=== PATIENT | female | born 1945 | race Caucasian/White ===

== ENCOUNTER 2017-01-18 11:22 | Day surgery (SDC) | payer MEDICARE, OTHER ==
[2017-01-18 11:49] VITALS: TEMP 98.4
[2017-01-18] MEDS ORDERED: TRIAMCINOLONE ACETONIDE 40 MG/ML SUS ONE (12:09)
[2017-01-18] MEDS ORDERED: LIDOCAINE HCL 1% MPF SOL ONE (12:22)
[2017-01-18 12:36] VITALS: PULSE 79; RESP 18; O2SAT 96
[2017-01-18 12:44] VITALS: BP 134/80
== END 2017-01-18 13:01 | disposition home or self-care (01) | DRG 552 ==
LOC: SURG 11:22
PROVIDERS: ATTEND Nurse Anesthetist, Certified Registered
DX: M48.06 Spinal stenosis, lumbar region (principal)
CPT/HCPCS: J2001; J3300

== ENCOUNTER 2017-09-27 08:34 | Day surgery (SDC) | payer MEDICARE, OTHER ==
[~2017-09-27 08:34] MED LIST: LIDOCAINE HCL 1% MPF SOL ONE; PROPOFOL 500 MG/50 ML EMU IV ONE
[2017-09-27] MEDS ORDERED: PROPOFOL 10 MG/ML EMU IV ONE ×2 (10:22)
[2017-09-27] MEDS ORDERED: ONDANSETRON HCL 4 MG/2 ML SOL ONE (10:31)
[2017-09-27 10:37] VITALS: TEMP 97
[2017-09-27 10:59] VITALS: RESP 20
[2017-09-27 11:05] VITALS: BP 115/59; PULSE 60; O2SAT 98
== END 2017-09-27 11:12 | disposition home or self-care (01) | DRG 951 ==
LOC: SURG 08:34
PROVIDERS: ATTEND Internal Medicine Gastroenterology
DX: Z12.11 Encounter for screening for malignant neoplasm of colon (principal); D12.2 Benign neoplasm of ascending colon; Z86.010 Personal history of colon polyps; K57.30 Diverticulosis of large intestine without perforation or abscess without bleeding; K64.8 Other hemorrhoids
CPT/HCPCS: J2405; J2001; J2704

== ENCOUNTER 2018-03-14 08:03 | Day surgery (SDC) | payer MEDICARE, OTHER ==
[2018-03-14 09:50] VITALS: TEMP 97.4
[2018-03-14 10:17] VITALS: RESP 18; O2SAT 98
[2018-03-14 10:23] VITALS: BP 113/62; PULSE 57
== END 2018-03-14 10:40 | disposition home or self-care (01) | DRG 951 ==
LOC: SURG 08:03
PROVIDERS: ATTEND Internal Medicine Gastroenterology
DX: Z12.11 Encounter for screening for malignant neoplasm of colon (principal); K57.30 Diverticulosis of large intestine without perforation or abscess without bleeding; Z86.010 Personal history of colon polyps; K62.1 Rectal polyp; K64.8 Other hemorrhoids
CPT/HCPCS: J2001; J2704

== ENCOUNTER → 2018-10-10 | Day surgery (SDC) | payer MEDICARE, OTHER ==
[~2018-10-10] MED LIST changes: +BUPIVACAINE HCL 0.25% MPF 30 ML SOL INFIL ONE; +DEXAMETHASONE SOD PHOS PF 10 MG/ML SOL IJ ONE; -LIDOCAINE HCL 1% MPF SOL ONE; -PROPOFOL 500 MG/50 ML EMU IV ONE
[2018-10-10 11:27] VITALS: BP 130/75; PULSE 66; RESP 18; TEMP 97.8; O2SAT 94
== END | disposition home or self-care (01) | DRG 552 ==
LOC: SURG 10:12
PROVIDERS: ATTEND Nurse Anesthetist, Certified Registered
DX: M48.062 Spinal stenosis, lumbar region with neurogenic claudication (principal)
CPT/HCPCS: J1100

== ENCOUNTER 2018-11-22 11:07 | Day surgery (SDC) | payer MEDICARE, OTHER ==
[2018-11-22] MEDS ORDERED: BUPIVACAINE HCL 0.25% MPF 30 ML SOL INFIL ONE (11:51)
[2018-11-22] MEDS: DEXAMETHASONE SOD PHOS PF 10 MG/ML SOL IJ ONE ×2 (11:59→12:03)
[2018-11-22 12:16] VITALS: O2SAT 96
[2018-11-22 12:29] VITALS: BP 138/83; PULSE 65; RESP 16; TEMP 98.8
== END 2018-11-22 13:01 | disposition home or self-care (01) | DRG 552 ==
LOC: SURG 11:07
PROVIDERS: ATTEND Nurse Anesthetist, Certified Registered
DX: M51.17 Intervertebral disc disorders with radiculopathy, lumbosacral region (principal)
CPT/HCPCS: J1100

== ENCOUNTER 2019-04-10 07:53 | Day surgery (SDC) | payer MEDICARE, OTHER ==
[~2019-04-10 07:53] MED LIST changes: -BUPIVACAINE HCL 0.25% MPF 30 ML SOL INFIL ONE; -DEXAMETHASONE SOD PHOS PF 10 MG/ML SOL IJ ONE; +LIDOCAINE HCL 1% MPF 30 SOL ONE; +PROPOFOL 500 MG/50 ML EMU IV ONE
[2019-04-10 10:10] VITALS: TEMP 97.3
[2019-04-10 10:22] VITALS: BP 111/68; PULSE 57; RESP 20; O2SAT 97
== END 2019-04-10 10:53 | disposition home or self-care (01) | DRG 951 ==
LOC: SURG 07:53
PROVIDERS: ATTEND Internal Medicine Gastroenterology
DX: Z12.11 Encounter for screening for malignant neoplasm of colon (principal); K57.32 Diverticulitis of large intestine without perforation or abscess without bleeding; K64.8 Other hemorrhoids; D12.3 Benign neoplasm of transverse colon; Z86.010 Personal history of colon polyps
CPT/HCPCS: J2001; J2704